=== PATIENT | female | born 1985 ===

== ENCOUNTER → 2017-05-12 | Outpatient (CLI) | payer OTHER ==
[2017-05-12 16:01] LABS: Specimen Source URINE
[2017-05-13 15:38] LABS: Source Urine
== END ==
LOC: LAB SHORT 15:58
PROVIDERS: Physician Assistant
DX: R35.0 Frequency of micturition (principal)
CPT/HCPCS: 87086; 87491; 87591

== ENCOUNTER 2017-11-23 21:26 | Emergency (ER) | payer OTHER | END 2017-11-23 22:15 | disposition left against medical advice (07) | LOC: ER 21:26 | DX: Z53.21 Procedure and treatment not carried out due to patient leaving prior to being seen by health care provider (principal) ==